=== PATIENT | male | born 1985 | race Hispanic/Latino ===

== ENCOUNTER 2020-06-19 15:23 | Inpatient (IN) | payer MEDICARE, MEDICAID ==
[~2020-06-19 15:23] MED LIST: Iopamidol 370 76% 100 ML VIAL ONE
[2020-06-19] MEDS ORDERED: Morphine 4 MG/ML VIAL ONE ×2 (16:17→22:40)
[2020-06-19] MEDS ORDERED: Ondansetron PF 4 MG/2 ML Vial ONE (16:17)
--- NOTE | 2020-06-19 16:52 | CT ---
CT Abdomen Pelvis W Con History: Abdominal pain. Comparison: Abdomen pelvis CT prior day Findings: Slightly enlarging right layering pleural effusion. Mild pulmonary edema. Heart size is enl arged. Hepatic hypodensities are similar. Slightly enlarging ascites. Intramural calcifications within the urinary bladder. The aortic contour is nonaneurysmal. No dilated loops of large or small bowel. No free intraperitoneal gas. Bilateral nephrectomies. Impression: Enlarging right pleural effusion and abdominal ascites.
[2020-06-19 17:01] LABS: #Eosinphils 0.1 thou/uL (0.0-0.7); #Lymphocytes 0.6 thou/uL (1.20-3.40); #Monocytes 0.4 thou/uL (0.11-0.59); #Neutrophils 2.7 thou/uL (1.40-6.50); %Basophils 0.9 % (0.0-1.0); %Eosinophils 2.6 % (0.0-10.0); %Monocytes 9.7 % (0.0-10.0); %Neutrophils 70.9 % (42.0-75.0); Hemoglobin 11.5 g/dL (14.0-18.0); Mean Corpuscular HGB CONC 32.5 g/dL (32.0-36.0); Mean Corpuscular Hemoglobin 31.4 pg (27.0-31.0); Mean Corpuscular Volume 96.6 fL (78.0-98.0); Mean Platelet Volume 8.2 fL (7.4-10.4); Platelet Count 151 thou/uL (130-400); RBC Distribution Width 16.6 % (11.5-14.5); Red Blood Cell (RBC) Count 3.66 mill/uL (4.70-6.10); White Blood Cell (WBC) Count 3.8 thou/uL (4.8-10.8)
[2020-06-19 17:24] LABS: ALT (SGPT) 9 U/L (8-55); AST (SGOT) 14 U/L (5-34); Albumin 3.9 g/dL (3.5-5.0); Alkaline Phosphatase 35 U/L (40-110); Anion Gap 25 mmol/L (10-20); BUN (Urea Nitrogen) 100 mg/dL (8.9-20.6); Bilirubin, Total 0.6 mg/dL (0.2-1.2); Calc. Creatinine Clearance 0 mL/min (70-130); Calcium 8.9 mg/dL (7.8-10.44); Carbon Dioxide 22 mmol/L (22-29); Chloride 101 mmol/L (98-107); Globulin 2.5 g/dL (2.4-3.5); Glucose 98 mg/dL (70-105); Lipase 52 U/L (8-78); Potassium 5.7 mmol/L (3.5-5.1); Protein, Total 6.4 g/dL (6.0-8.3); Sodium 142 mmol/L (136-145)
[2020-06-19 17:43] LABS: CKMB 2.9 ng/mL (0-6.6)
[2020-06-19] MEDS ORDERED: Morphine 2 MG/ML VIAL ONE (18:00)
--- NOTE | 2020-06-19 19:32 | PDOC.FPRHP ---
- History of Present Illness Chief Complaint: ESRD, Abdominal Pain History of Present Illness: Pt is a 34 yo male with PMH significant for polycystic kidney disease s/p bilateral nephrectomy currently on HD, HTN who presents to the ED for worsening abdominal pain starting 3 days ago. He states he has felt pain like this after his bilateral nephrectomy. He has had 3 paracentesis w/o evidence of SBP. His abdominal pain seems to be fairly consistent and is apparent at rest. Denies significant flank pain. He endorsed chronic diarrhea, dark in nature but denies overt blood. He denies fever, chills, N/V. Has decreased PO intake. Endorsed dyspnea but alleviated with paracentesis. He missed his Friday dialysis. He had his bilateral nephrectomy performed in [place], [place] roughly 6 months ago. After the procedure he notes the ascites became prominent. He moved to [facility] to be with his daughter. He now sees Dr. Winston and has HD on MWF. PCKD runs in the family. Dialysis Fistula is located on L arm. ED Course: Pt was given Morphine for a total of 14 mg IV, zofran. Diagnostic paracentesis was performed. - Allergies/Adverse Reactions Allergies Allergy/AdvReac Type Severity Reaction Status Date / Time ketamine Allergy Verified 06/20/20 14:05 trazodone Allergy Verified 06/20/20 14:05 - Home Medications Medication Instructions Recorded Confirmed Type Diazepam 10 mg PO TID PRN 06/19/20 06/19/20 History Metoprolol Tartrate 50 mg PO BID 06/19/20 06/19/20 History Minoxidil 2.5 mg PO BID 06/19/20 06/19/20 History hydrALAZINE HCl [Hydralazine HCl] 50 mg PO TID 06/19/20 06/19/20 History - History PMHx: PCKD s/p bilateral nephrectomy on HD, HTN PSHx: Bilateral nephrectomy FHx: PCKD Social: Denies tobacco, alcohol, drugs currently; endorsed 1 ppd from [id number] - Review of Systems General: reports: weight/appetite/sleep changes. denies: fever/chills Eyes: denies: eye pain, vision changes ENT: denies: nasal congestion, rhinorrhea Respiratory: reports: shortness of breath. denies: cough, congestion Cardiovascular: reports: edema. denies: chest pain, palpitation Gastrointestinal: reports: diarrhea, abdominal pain. denies: nausea, vomiting, constipation, GI bleeding Skin: denies: rashes, lesions Musculoskeletal: denies: pain, tenderness Neurological: denies: numbness, syncope Psychological: denies: anxiety, depression - Vital signs BP: 180/108 HR: 68 RR: 18 Tmax: 99.1 Pox: 96% on RA Wt:81 kg - Physical Exam Constitutional: NAD, awake, alert and oriented HEENT: normocephalic and atraumatic, PERRLA, EOMI Neck: FROM, no JVD Heart: RRR, normal S1/S2, no murmurs/rubs/gallops, pulses present -Heart: trace LE edema Lungs: CTAB, no respiratory distress, no rales/rhonchi -Abdomen: mild abdominal distention w/o rigidity, pain with minimal palpation, BS present Musculoskeletal: normal structure, ROM grossly normal Neurological: no focal deficit, CN II-XII intact Skin: no rash/lesions, good turgor Heme/Lymphatic: no purpura, no petechia Psychiatric: normal mood and affect, good judgment and insight FMR H&P: Results - Labs Result Diagrams: 06/20/20 01:49 06/20/20 01:49 Lab results: WBC 3.8 thou/uL (4.8-10.8) L 06/19/20 16:27 Hgb 11.5 g/dL (14.0-18.0) L 06/19/20 16:27 Hct 35.4 % (42.0-52.0) L 06/19/20 16:27 MCV 96.6 fL (78.0-98.0) 06/19/20 16:27 Plt Count 151 thou/uL (130-400) 06/19/20 16:27 Neutrophils % 70.9 % (42.0-75.0) 06/19/20 16:27 Sodium 142 mmol/L (136-145) 06/19/20 16:27 Potassium 5.7 mmol/L (3.5-5.1) H 06/19/20 16:27 Chloride 101 mmol/L (98-107) 06/19/20 16:27 Carbon Dioxide 22 mmol/L (22-29) 06/19/20 16:27 BUN 100 mg/dL (8.9-20.6) H 06/19/20 16:27 Creatinine 19.52 mg/dL (0.7-1.3) H 06/19/20 16:27 Glucose 98 mg/dL (70-105) 06/19/20 16:27 Calcium 8.9 mg/dL (7.8-10.44) 06/19/20 16:27 Total Bilirubin 0.6 mg/dL (0.2-1.2) 06/19/20 16:27 AST 14 U/L (5-34) 06/19/20 16:27 ALT 9 U/L (8-55) 06/19/20 16:27 Alkaline Phosphatase 35 U/L (40-110) L 06/19/20 16:27 CK-MB (CK-2) 2.9 ng/mL (0-6.6) 06/19/20 16:27 Serum Total Protein 6.4 g/dL (6.0-8.3) 06/19/20 16:27 Albumin 3.9 g/dL (3.5-5.0) 06/19/20 16:27 Lipase 52 U/L (8-78) 06/19/20 16:27 - EKG Interpretation EKG: NSR w/o ST changes or peaked T waves - Radiology Interpretation CT scan - abdomen Status: report reviewed by me Additional comment: Enlarging right pleural effusion and abdominal ascites, bilateral nephrectomies FMR H&P: A/P - Plan Pt is a 34 yo male who presents for abdominal pain: # Abdominal Pain Differential: s/p bilateral nephrectomy vs bowel ischemia vs SBP vs gastroenteritis CT Abdomen revealed ascites but did not note colitis. - will discuss case with radiology concerning possible bowel ischemia - administer ceftriaxone 1 gm - morphine prn pain - start tylenol, ibuprofen scheduled - pending ascites studies - HIV, UDS, Hep C pending # Anion Gap Bicarb normal. Lactic acid normal. Likely 2/2 ESRD # Hyperkalemia - dialysis planned 06/20, no peaked twaves on EKG - repeat with am labs # Indeterminate Trop Likely demand in setting of HTN and ESRD - trend # HTN - restart home meds - dialysis tomorrow # ESRD s/p bilateral nephrectomy 2/2 polycystic kidney disease - MWF dialysis - Dr. Winston consulted from ED; dialysis for 06/20 am # Normocytic Anemia - likely chronic disease anemia - trend with am labs # Abdominal Ascites Chronic in nature s/p nephrectomy - pending studies # Anxiety - hold diazepam at this time Fluids: none Diet: HH VTE: SCD's, do not think he has a GI bleed but endorsed FMR H&P: Upper Level - Plan Date/Time: 06/19/201930 I, [], have evaluated this patient and agree with findings/plan as outlined by epidemiology intern resident. Pertinent changes/additions are listed here. Addendum - Attending - Attending Attestation Date/Time: 06/19/20 6070 I personally evaluated the patient and discussed the management with Dr. Mitchell I agree with the History, Examination, Assessment and Plan documented above with any addition or exceptions noted below. 34 yo male with ESRD 2/2 polycystic kidney disease s/p bilateral nephrectomy admitted for missed HD and severe abdominal pain. Admit to tele. Correct electrolytes. HD in AM. Paracentesis done. No evidence of SBP. No peritoneal signs but exam out of porportion. Will discuss possibly of ischemic bowel with radiology. No evidence of elevated lactate so less likely but possible. Other concern would be related to uremia in general vs other GI origin. Will continue with symptoms control. Continue serial exams. VS stable. Trend labs. Imaging as needed. Monitor closely throughout the night. Send for stool studies. Denies N/V. Was able to tolerate PO intake this AM. Consult GI vs Gen surg as needed. [place]
[2020-06-19 19:41] LABS: RBC Count-Automated (BF) 1167 /cu.mm; WBC/Nucleated-Auto (BF) 128 uL
[2020-06-19 19:58] LABS: BF Color Yellow; Body Fluid Source Ascites Body Fluid; Clarity Hazy (Clear); Tube # 1
[2020-06-19 20:10] LABS: BF Segmented Neutrophils 4 %; Cell Count Non Hematic 69 %; Eosinophils 1 %; Lymphocytes 25 %
[2020-06-19 20:24] LABS: Troponin I 0.045 ng/mL (< 0.028)
[2020-06-19 23:10] LABS: Troponin I 0.051 ng/mL (< 0.028)
[2020-06-19] MEDS ORDERED: cefTRIAXone\\ROCEPHIN 1 GM in Sodium Chloride 0.9% 100 ML IVPB SCH (23:59)
[2020-06-20] MEDS ORDERED: Famotidine 20 MG TAB PO SCH (00:45)
[2020-06-20] MEDS ORDERED: Metoprolol Tartrate 50 MG TAB ONE ×2 (01:00→10:51)
[2020-06-20] MEDS ORDERED: cefTRIAXone\\ROCEPHIN 1 GM VIAL ONE (01:00)
[2020-06-20] MEDS ORDERED: Ibuprofen 200 MG TAB ONE (01:00)
[2020-06-20] MEDS ORDERED: hydrALAZINE 25 MG TAB ONE (01:00)
[2020-06-20] MEDS ORDERED: Acetaminophen 500 MG TAB ONE (01:00)
[2020-06-20] MEDS: Acetaminophen 500 MG TAB PO SCH ×4 (01:07→18:45)
[2020-06-20] MEDS: Metoprolol Tartrate 50 MG TAB PO SCH ×3 (01:07→20:24)
[2020-06-20] MEDS: hydrALAZINE 25 MG TAB PO SCH ×4 (01:07→20:23)
[2020-06-20] MEDS: Ibuprofen 600 MG TAB PO SCH ×3 (01:08→11:58)
[2020-06-20] MEDS ORDERED: Famotidine 20 MG TAB ONE (01:35)
[2020-06-20] MEDS: Minoxidil 2.5 MG TAB PO SCH ×3 (01:38→20:48)
[2020-06-20 02:02] LABS: #Basophils 0.1 thou/uL (0.0-0.2); #Eosinphils 0.1 thou/uL (0.0-0.7); #Lymphocytes 0.9 thou/uL (1.20-3.40); #Monocytes 0.3 thou/uL (0.11-0.59); #Neutrophils 2.8 thou/uL (1.40-6.50); %Basophils 1.7 % (0.0-1.0); %Eosinophils 2.1 % (0.0-10.0); %Lymphocytes 21.4 % (21.0-51.0); %Neutrophils 66.8 % (42.0-75.0); Hemoglobin 12.5 g/dL (14.0-18.0); Mean Corpuscular HGB CONC 31.6 g/dL (32.0-36.0); Mean Corpuscular Hemoglobin 30.8 pg (27.0-31.0); Mean Corpuscular Volume 97.5 fL (78.0-98.0); Mean Platelet Volume 8.6 fL (7.4-10.4); Platelet Count 141 thou/uL (130-400); RBC Distribution Width 16.7 % (11.5-14.5); Red Blood Cell (RBC) Count 4.04 mill/uL (4.70-6.10); White Blood Cell (WBC) Count 4.2 thou/uL (4.8-10.8)
[2020-06-20 02:27] LABS: Acetaminophen Less than 6.0 mcg/mL (10.0-30.0); Alcohol Less than 10 mg/dL (Less than 10); Salicylate Less than 8.0 mg/dL (15.0-30.0)
[2020-06-20 02:32] LABS: Anion Gap 26 mmol/L (10-20); BUN (Urea Nitrogen) 99 mg/dL (8.9-20.6); Calc. Creatinine Clearance 0 mL/min (70-130); Calcium 8.6 mg/dL (7.8-10.44); Carbon Dioxide 19 mmol/L (22-29); Chloride 100 mmol/L (98-107); Glucose 98 mg/dL (70-105); Potassium 6.3 mmol/L (3.5-5.1); Sodium 139 mmol/L (136-145); Troponin I 0.047 ng/mL (< 0.028)
[2020-06-20 02:46] LABS: HIV (1/2) Antibody/Antigen Non-Reactive (NonReactive); HIV 1/2 INDEX 0.11 S/CO (<1.00); Hep C IgG Ab Non-Reactive (NonReactive); Hep C Index 0.06 S/CO (0-0.79)
[2020-06-20] MEDS ORDERED: Morphine 4 MG/ML VIAL ONE ×2 (04:35→08:54)
[2020-06-20] MEDS: Morphine 4 MG/ML VIAL SLOW IVP PRN ×3 (04:38→21:47)
--- NOTE | 2020-06-20 05:46 | PDOC.FM ---
- Subjective Subjective: Patient reports persistent abdominal pain mildly improved with morphine. He endorses mild nausea without vomiting. Denies CP/SOB. - Objective MAR Reviewed: Yes Vital Signs & Weight: Vital Signs (12 hours) Pulse 06/20/20 01:07 66 Result Diagrams: 06/20/20 01:49 06/20/20 01:49 Phys Exam - Physical Examination Constitutional: NAD HEENT: moist MMs, sclera anicteric Neck: no nodes, no JVD Respiratory: no wheezing, no rales, no rhonchi, clear to auscultation bilateral Cardiovascular: RRR, no significant murmur, no rub Gastrointestinal: soft, positive bowel sounds Mild distension, TTP diffusely, worse in RLQ and LLQ Musculoskeletal: no edema Neurological: non-focal Psychiatric: normal affect, A&O x 3 Skin: no rash, cap refill <2 seconds Dx/Plan - Plan Plan: Pt is a 34 yo male who presents for abdominal pain: Abdominal Pain Differential: s/p bilateral nephrectomy vs gastroenteritis vs SBP vs bowel ischemia CT Abdomen revealed ascites w/o colitis - morphine prn pain - Tylenol, ibuprofen scheduled - HIV, HCV negative - Ascitic fluid studies: WBC 128, 4% neutrophils, no s/s of infx - Consider continuation of Rocephin given abdominal tenderness on exam Anion Gap Bicarb normal. Lactic acid normal. Likely 2/2 ESRD Hyperkalemia - dialysis planned 06/20, no peaked twaves on EKG - continue to monitor Indeterminate Trop Likely demand in setting of HTN and ESRD HTN - restarted home meds - dialysis tomorrow ESRD s/p bilateral nephrectomy 2/2 polycystic kidney disease - MWF dialysis - Dr. Winston consulted from ED; dialysis for 06/20 am Normocytic Anemia - likely chronic disease anemia - trend with am labs Abdominal Ascites Chronic in nature s/p nephrectomy - studies as above, pending albumin Anxiety - restart diazepam to avoid withdrawal Fluids: none Diet: HH VTE: SCD's Code: full Dispo: Admitted tele, ED hold at this time. eLOS < 48 hrs Addendum - Attending - Attending Attestation Date/Time: 06/20/20 8204 I personally evaluated the patient and discussed the management with Dr. Everett. I agree with the History, Examination, Assessment and Plan documented above with any addition or exceptions noted below. HD today. s/p paracentesis in ER yesterday. Fluid studies do not suggest SBP. suspect abdominal pain 2/[address] Winston stated minoxidil may be contributing to this as well. Pain management for now with IV narcotic. Will attempt to taper off in the next few days.
[2020-06-20] MEDS ORDERED: Ondansetron PF 4 MG/2 ML Vial ONE (08:54)
--- NOTE | 2020-06-20 09:35 | CON ---
DATE OF CONSULTATION: 06/20/2020 HISTORY OF PRESENT ILLNESS: Mr. Abbasi is a 34-year-old white male with ESRD from autosomal dominant polycystic kidney disease, who was admitted for abdominal pain. A diagnostic paracentesis was done when he was found to have significant ascites. We are following up this patient for management of his ESRD. Results of his paracentesis are still pending. REVIEW OF SYSTEMS: Positive for abdominal pain. Positive for nausea. No fever or chills. No productive cough. No gross hematuria. No dysuria. No urinary frequency. No syncopal episode. No diarrhea. Appetite and energy level are decreased. PAST MEDICAL HISTORY: ESRD from autosomal dominant polycystic kidney disease, hypertension, history of anxiety, status post UTI. PAST SURGICAL HISTORY: Status post bilateral nephrectomy, status post AV fistula placement. FAMILY HISTORY: Positive family history of autosomal dominant polycystic kidney disease. ALLERGIES: TRAZODONE? TRAUMA: None. IMMUNIZATIONS: Up to date. HOSPITALIZATIONS: Please see past medical history. HOME MEDICATIONS: 1. Metoprolol tartrate 50 mg p.o. b.i.d. 2. Minoxidil 2.5 mg p.o. b.i.d. 3. Hydralazine 50 mg p.o. t.i.d. 4. Diazepam 10 mg p.o. t.i.d. as needed. SOCIAL HISTORY: Patient , several children. He moved from [place] to [place]. Currently lives with his daughter. Smoked for about 1-2 years, one pack per day. Alcohol, none. No IV drug abuse. No tobacco use. Used to work in the [employer] and [employer]. Education high school. Previously incarcerated. PHYSICAL EXAMINATION: VITAL SIGNS: Blood pressure is 130/70, heart rate 66. GENERAL: Awake, alert, in mild pain, not in respiratory distress. SKIN: Adequate turgor. HEENT: He has a pinkish conjunctivae. Anicteric sclerae. NECK: No neck mass. No carotid bruits. No JVD. CHEST: No deformities. LUNGS: Clear breath sounds. HEART: Normal sinus rhythm. No murmur. No gallops. No rubs. ABDOMEN: Globular, soft, nontender. No masses. EXTREMITIES: No edema. No deformities. He does have ascites on examination. LABORATORY DATA: June 20, 2020; sodium 139, potassium 6.3, chloride 100, carbon dioxide 19, BUN 99, creatinine 9.63, glucose 98, calcium 8.6. Troponin I 0.047. White count 4.2, hemoglobin 12.5. Hepatitis C antibody negative. HIV nonreactive. Plasma alcohol less than 10. PD fluid shows hazy fluid, white count is 128, lymphocytes 25, segmenters is only 4. CAT scan of the abdomen and pelvis shows marked ascites and small pericardial effusion with mild pleural effusion. ASSESSMENT AND PLAN: 1. Abdominal pain, unclear if he has overt peritonitis. White count is borderline at 125. My bias is to consider treating him empirically with IV antibiotics. Consider cefepime 1 g IV daily. 2. End-stage renal disease/hyperkalemia, emergent hemodialysis being done. We will plan to do a 3-hour hemodialysis today since he missed his dialysis yesterday. In addition, we will place him back on a Friday, Friday, Friday regular hemodialysis. Will max out fluid removal due to his ascites and finding of a pericardial effusion and pleural effusion. Due to the general anasarca, my bias is to discontinue minoxidil. 3. Abdominal pain, p.r.n. pain medications. Thank you for the consult. We will continue to follow. Job ID: [id number] [facility]
[2020-06-20] MEDS ORDERED: Fentanyl 100 MCG/2 ML VIAL SLOW IVP PRN (09:42)
[2020-06-20] MEDS: Diazepam 5 MG TAB PO SCH ×2 (14:01→20:24)
[2020-06-20] MEDS: HYDROcodone/Acetaminophen 5/325 mg Tablet PO PRN ×2 (14:01→18:44)
[2020-06-20 14:10] VITALS: BMI 26.6
--- NOTE | 2020-06-20 15:15 | ULT ---
EXAM: US Gallbladder RUQ CLINICAL HISTORY: Abdominal pain. COMPARISON: None. FINDINGS: Pancreas: Suboptimal evaluation the pancreas Liver:Hepatic parenchyma has a normal echotexture. No hepatic masses or intrahepatic biliary dilatati on. Right hepatic lobe: 21.5 cm Gallbladder: No sonographic guidance of cholelithiasis. Gallbladder wall is thickened which may in pa rt be due to adjacent ascites. Gallbladder wall thickness is 0.9 cm. Prieto's sign:Negative Portal Vein: Pulsatile flow Bile ducts: 0.72 cm common bile duct diameter Right kidney: Surgically absent right kidney. IMPRESSION: 1. Ascites 2. Gallbladder wall thickening without evidence of choledocholithiasis. Negative Prieto's sign. 3. Prominent common bile duct. If there is concern for choledocholithiasis, consider MRCP
[2020-06-20 19:36] LABS: SARS-CoV-2 PCR by NAA Not Detected (NotDetected)
[2020-06-20] MEDS: Famotidine 20 MG TAB PO SCH (20:23)
[2020-06-21] MEDS: Acetaminophen 500 MG TAB PO SCH ×4 (01:00→18:27)
[2020-06-21] MEDS: HYDROcodone/Acetaminophen 5/325 mg Tablet PO PRN ×2 (03:18→21:29)
--- NOTE | 2020-06-21 06:05 | PDOC.FM ---
- Subjective Subjective: Patient reports abdominal pain is decreased since yesterday. [place] didn't seem to help pain. Denies constipation, CP, SOB. - Objective MAR Reviewed: Yes Vital Signs & Weight: Vital Signs (12 hours) Temp Pulse Resp BP Pulse Ox 06/21/20 03:18 98.1 F 58 L 15 154/84 H 93 L 06/21/20 00:00 98.2 F 62 18 149/79 H 93 L 06/20/20 19:00 98.1 F 64 18 157/88 H 92 L Weight Weight 82 kg I&O: 06/19/20 06/20/20 06/21/20 06:59 06:59 06:59 Intake Total 840 Balance 840 Result Diagrams: 06/21/20 09:42 06/21/20 09:42 Phys Exam - Physical Examination Constitutional: NAD Sleeping comfortably on exam Respiratory: no wheezing, no rales, no rhonchi, clear to auscultation bilateral Cardiovascular: RRR, no significant murmur, no rub Gastrointestinal: soft, no distention, positive bowel sounds diffuse abdominal tenderness to palpation Dx/Plan - Plan Plan: Pt is a 34 yo male who presents for abdominal pain: Abdominal Pain Differential: s/p bilateral nephrectomy vs gastroenteritis vs SBP vs bowel ischemia CT Abdomen revealed ascites w/o colitis - morphine prn pain - Tylenol, ibuprofen scheduled - HIV, HCV negative - Ascitic fluid studies: WBC 128, 4% neutrophils, no s/s of infx - Given low PMN with no organisms seen on gram stain, will continue with no abx therapy at this time - F/U fluid culture - Will work towards pain control Anion Gap Bicarb normal. Lactic acid normal. Likely 2/2 ESRD Hyperkalemia - dialysis planned 06/20, no peaked twaves on EKG - continue to monitor Indeterminate Trop Likely demand in setting of HTN and ESRD HTN - Stop Minoxidil - Start Nifedipine - Continue home hydralazine ESRD s/p bilateral nephrectomy 2/2 polycystic kidney disease - MWF dialysis - Dr. Winston consulted from ED; dialysis for 06/20 am Normocytic Anemia - likely chronic disease anemia - trend with am labs Abdominal Ascites Chronic in nature s/p nephrectomy - studies as above, pending albumin Anxiety - restart diazepam to avoid withdrawal - PDMPP shows patient is filling Rx every month Fluids: none Diet: HH VTE: SCD's Code: full Dispo: Admitted tele, ED hold at this time. eLOS < 48 hrs Addendum - Attending - Attending Attestation Date/Time: 06/21/20 1040 I personally evaluated the patient and discussed the management with Dr. Everett. I agree with the History, Examination, Assessment and Plan documented above with any addition or exceptions noted below. d/c minoxidil. start procardia.
[2020-06-21] MEDS: Diazepam 5 MG TAB PO SCH ×3 (08:35→21:30)
[2020-06-21] MEDS: hydrALAZINE 25 MG TAB PO SCH ×3 (08:35→21:29)
[2020-06-21] MEDS: Metoprolol Tartrate 50 MG TAB PO SCH ×2 (08:36→21:30)
[2020-06-21] MEDS: Morphine 2 MG/ML VIAL SLOW IVP PRN ×4 (08:40→21:30)
[2020-06-21] MEDS ORDERED: NIFEdipine XL 30 MG TAB PO SCH (09:00)
--- NOTE | 2020-06-21 09:27 | PRG ---
DATE OF SERVICE: 06/21/2020 SUBJECTIVE: Mr. Abbasi is a 34-year-old white male, who was admitted for abdominal pain. He has also ESRD and for that reason, we are following up for his maintenance hemodialysis. He underwent emergent hemodialysis yesterday due to the hyperkalemia. This morning, he is feeling better. His abdominal pain is actually slightly improved. He was also found to have generalized edema. For that reason, we held off the minoxidil temporarily. OBJECTIVE: VITAL SIGNS: Blood pressure 163/96, heart rate 59, respiratory rate 22, temperature 98.3, O2 saturations 90%. GENERAL: The patient is awake, alert, sitting comfortable, not in distress. SKIN: Adequate turgor. HEENT: He has a pinkish conjunctivae. Anicteric sclerae. No neck mass. No carotid bruits. No JVD. CHEST: No deformities. LUNGS: Clear breath sounds. No wheezing. No crackles. HEART: Normal sinus rhythm. No murmur. No gallops or rubs. ABDOMEN: Globular, soft, nontender. No masses. EXTREMITIES: No edema. No deformities. MEDICATIONS: Medications of June 21, 2020, reviewed. LABORATORY DATA: Laboratories of June 20, 2020; white count 4.2, hemoglobin 12.5. On June 20, 2020, BUN 99, creatinine 19.63, potassium 6.3. On June 21, 2020, lab work pending. ASSESSMENT AND PLAN: 1. Hyperkalemia, status post hemodialysis. 2. End-stage renal disease. We will continue current Friday, Friday, and Friday hemodialysis regimen. Fluid removal as tolerated. This is a regular hemodialysis schedule. 3. Hypertension-off minoxidil. The patient is started on another antihypertensive medication on Lopressor 50 mg p.o. b.i.d. and on Procardia 30 mg XL tab. 4. Abdominal pain. A CT fluid was sent for examination. No evidence of infection, so far, Gram stain was said to be negative. In addition, blood culture has been done with this patient and no growth to date has been noted. 5. Agree with current management. Job ID: [id number]
[2020-06-21 09:49] LABS: #Eosinphils 0.1 thou/uL (0.0-0.7); #Lymphocytes 0.7 thou/uL (1.20-3.40); #Monocytes 0.4 thou/uL (0.11-0.59); #Neutrophils 2.3 thou/uL (1.40-6.50); %Eosinophils 2.9 % (0.0-10.0); %Lymphocytes 19.6 % (21.0-51.0); %Neutrophils 66.5 % (42.0-75.0); Hemoglobin 12.6 g/dL (14.0-18.0); Mean Corpuscular HGB CONC 32.7 g/dL (32.0-36.0); Mean Corpuscular Hemoglobin 31.6 pg (27.0-31.0); Mean Corpuscular Volume 96.7 fL (78.0-98.0); Platelet Count 146 thou/uL (130-400); Red Blood Cell (RBC) Count 3.97 mill/uL (4.70-6.10); White Blood Cell (WBC) Count 3.5 thou/uL (4.8-10.8)
[2020-06-21 10:11] LABS: ALT (SGPT) 9 U/L (8-55); AST (SGOT) 13 U/L (5-34); Albumin 3.8 g/dL (3.5-5.0); Alkaline Phosphatase 37 U/L (40-110); Anion Gap 20 mmol/L (10-20); BUN (Urea Nitrogen) 69 mg/dL (8.9-20.6); Bilirubin, Total 0.6 mg/dL (0.2-1.2); Calc. Creatinine Clearance 8 mL/min (70-130); Calcium 8.6 mg/dL (7.8-10.44); Carbon Dioxide 26 mmol/L (22-29); Chloride 97 mmol/L (98-107); Globulin 2.3 g/dL (2.4-3.5); Glucose 128 mg/dL (70-105); Potassium 4.9 mmol/L (3.5-5.1); Protein, Total 6.1 g/dL (6.0-8.3); Sodium 138 mmol/L (136-145)
[2020-06-21] MEDS: Ondansetron ODT 4 MG TAB PO PRN (13:12)
[2020-06-21] MEDS: Sevelamer Carbonate 800 MG TAB PO SCH (17:39)
[2020-06-21] MEDS: Famotidine 20 MG TAB PO SCH (21:30)
[2020-06-22] MEDS: Acetaminophen 500 MG TAB PO SCH ×2 (01:54→06:26)
[2020-06-22] MEDS: Morphine 2 MG/ML VIAL SLOW IVP PRN ×3 (01:55→11:25)
[2020-06-22] MEDS: HYDROcodone/Acetaminophen 5/325 mg Tablet PO PRN ×2 (01:56→06:27)
--- NOTE | 2020-06-22 06:12 | PDOC.FM ---
- Subjective Subjective: Patient with worsening abdominal pain today. He is frustrated and feels like he's "going backwards". He endorses nausea only when he has abdominal cramping. Denies vomiting, difficulty eating, and constipation. Denies SOB, CP. Overnight he required more narcotic pain medication and refused Tylenol. - Objective MAR Reviewed: Yes Vital Signs & Weight: Vital Signs (12 hours) Temp Pulse Resp BP Pulse Ox 06/22/20 03:40 98.4 F 60 19 157/95 H 94 L 06/21/20 21:34 98.5 F 63 14 157/103 H 96 Weight Weight 82 kg I&O: 06/20/20 06/21/20 06/22/20 06:59 06:59 06:59 Intake Total 840 Balance 840 Result Diagrams: 06/21/20 09:42 06/21/20 09:42 Phys Exam - Physical Examination Constitutional: NAD Respiratory: no wheezing, no rales, no rhonchi, clear to auscultation bilateral Cardiovascular: RRR, no significant murmur, no rub Gastrointestinal: soft, positive bowel sounds mild distension-more than yesterday, diffuse tenderness Musculoskeletal: no edema Neurological: non-focal, moves all 4 limbs Deviation from normal: Tearful when discussing worsening pain Dx/Plan - Plan Plan: Pt is a 34 yo male who presents for abdominal pain: Abdominal Pain Differential: s/p bilateral nephrectomy vs gastroenteritis vs SBP vs bowel ischemia CT Abdomen revealed ascites w/o colitis - morphine, norco prn pain - Tylenol scheduled - Talked to patient about taking scheduled Tylenol - HIV, HCV negative - Ascitic fluid studies: WBC 128, 4% neutrophils, no s/s of infx - Given low PMN with no organisms seen on gram stain, will continue with no abx therapy at this time - F/U fluid culture - Will work towards pain control - Add Gabapentin 300 QD and hyoscyamine Q6H Anion Gap Bicarb normal. Lactic acid normal. Likely 2/2 ESRD Hyperkalemia - dialysis planned per normal schedule - continue to monitor Indeterminate Trop Likely demand in setting of HTN and ESRD HTN - Stopped Minoxidil - Started Nifedipine, increase today - Continue home hydralazine ESRD s/p bilateral nephrectomy 2/2 polycystic kidney disease - MWF dialysis - Dr. Winston consulted from ED Normocytic Anemia - likely chronic disease anemia - trend with am labs Abdominal Ascites Chronic in nature s/p nephrectomy - studies as above Anxiety - restart diazepam to avoid withdrawal - PDMPP shows patient is filling Rx every month Fluids: none Diet: HH VTE: SCD's Code: full Dispo: Admitted tele inpatient eLOS < 48 hrs, pending workup and pain control. Addendum - Attending - Attending Attestation Date/Time: 06/22/20 7597 I personally evaluated the patient and discussed the management with Dr. Everett. I agree with the History, Examination, Assessment and Plan documented above with any addition or exceptions noted below. [employer] shows he is on norco 5mg BID chronically. will resume this. cymbalta for nerve pain renally dosed. possible d/c today if cleared per nephro.
[2020-06-22] MEDS ORDERED: Polyethylene Glycol 3350 17 GM Packet PO PRN (08:20)
[2020-06-22] MEDS ORDERED: Hyoscyamine Sulfate SL 0.125 mg Tablet PO SCH ×2 (08:45→12:00)
--- NOTE | 2020-06-22 08:54 | PRG ---
DATE OF SERVICE: 06/22/2020 SUBJECTIVE: Mr. Abbasi is a 34-year-old white male with ESRD who was admitted for abdominal pain. Workup for the abdominal pain has been negative. CT scan of the abdomen and pelvis has been done. In addition, PD fluid as well as blood culture have all been negative. Still complaining of some mild abdominal pain. On close questioning, the patient tells me this is chronic in nature. He is asking for further adjustment of his pain medications upwards. I did explain to him that we have to use narcotics judiciously. I did speak with the house staff regarding pain management. Gabapentin to be given at 300 mg tablet daily. In addition, minoxidil has been discontinued due to the anasarca with this patient. No complaints of chest pain or shortness of breath. OBJECTIVE: VITAL SIGNS: Blood pressure 172/102, heart rate 58, respiratory rate 17, temperature 98, O2 saturation 94% on room air. GENERAL: The patient is awake, alert, comfortable, not in distress. SKIN: Adequate turgor. HEENT: He has pinkish conjunctivae. Anicteric sclerae. No neck mass. No carotid bruits. No JVD. CHEST: No deformities. LUNGS: Clear breath sounds. No wheezing. No crackles. HEART: Normal sinus rhythm. No murmur. No gallops. No rubs. ABDOMEN: Globular, soft, nontender. No masses. EXTREMITIES: No edema, no deformities. MEDICATIONS: From June 22, 2020, reviewed. LABORATORY DATA: From June 21, 2020; white count 3.5, hemoglobin 12.6. Sodium 138, potassium 4.9, chloride 97, carbon dioxide 26, BUN 69, creatinine 15.6, glucose 128. AST 13, ALT 9, albumin 3.8. ASSESSMENT AND PLAN: 1. Abdominal pain - chronic in nature. Imaging showed no acute intraabdominal abnormality. In addition, the patient's ascitic fluid showed no bacteria growing. Blood culture was also negative. 2. Hypertension. Minoxidil discontinued and replaced with nifedipine. Nifedipine has been increased to 60 mg XL tablet once a day. Agree with current management. Continue supportive care. 3. End-stage renal disease, stable. Tolerated dialysis yesterday. Next dialysis will be tomorrow. We will continue current Friday, Friday, and Friday dialysis regimen. Job ID: [id number]
[2020-06-22] MEDS ORDERED: NIFEdipine XL 30 MG TAB PO SCH (09:00)
[2020-06-22] MEDS ORDERED: Gabapentin 100 MG CAP PO SCH (09:00)
[2020-06-22] MEDS: hydrALAZINE 25 MG TAB PO SCH (09:06)
[2020-06-22] MEDS: Diazepam 5 MG TAB PO SCH (09:06)
[2020-06-22] MEDS: Metoprolol Tartrate 50 MG TAB PO SCH (09:06)
[2020-06-22] MEDS: Sevelamer Carbonate 800 MG TAB PO SCH ×2 (09:08→11:33)
[2020-06-22] MEDS: Ondansetron ODT 4 MG TAB PO PRN (11:25)
[2020-06-22 12:06] VITALS: BP 178/96; TEMP 97.6
[2020-06-22] MEDS ORDERED: HYDROcodone/Acetaminophen 5/325 mg Tablet PO SCH (21:00)
--- NOTE | 2020-06-23 14:23 | DIS ---
DATE OF ADMISSION: 06/20/2020 DATE OF DISCHARGE: 06/22/2020 RESIDENT: Mitul Everett MD ADMITTING ATTENDING: Dr. Wiley. DISCHARGE ATTENDING: Dr. Lozoya. CONSULT: Dr. Winston, Nephrology on 06/19/2020. PROCEDURES: The patient had CT of the abdomen and pelvis with contrast, showing a slightly enlarging right pleural effusion with mild pulmonary edema, no free intraperitoneal gas, bilateral nephrectomies and abdominal ascites. The patient had right upper quadrant ultrasound showing mild ascites, gallbladder wall thickening without evidence of choledocholithiasis, and a prominent common bile duct. The patient had a paracentesis performed in the emergency room, diagnostic. PRIMARY DIAGNOSIS: Hyperkalemia. SECONDARY DIAGNOSES: 1. indeterminate troponin. 2. Hypertension. 3. End-stage renal disease, status post bilateral nephrectomy due to polycystic kidney disease, on hemodialysis. 4. Normocytic anemia. 5. Abdominal ascites. 6. Anxiety. DISCHARGE MEDICATIONS: 1. Tylenol 1000 mg p.o. q.6 hours. 2. Diazepam 10 mg p.o. t.i.d. 3. Cymbalta 20 mg p.o. daily. 4. Pepcid 20 mg p.o. q.p.m. 5. Hydralazine 50 mg p.o. t.i.d. 6. Jaroso 5 mg/325 mg p.o. b.i.d. 7. Hyoscyamine 0.125 mg p.o. q.6 hours, 30 days. 8. Metoprolol 50 mg p.o. b.i.d. 9. Nifedipine 60 mg p.o. daily. 10. MiraLAX 17 g p.o. daily p.r.n. 11. Renvela 2400 mg p.o. t.i.d. DISCONTINUED MEDICATIONS: Discontinue minoxidil due to ascites and anasarca. HISTORY OF PRESENT ILLNESS/HOSPITAL COURSE: The patient is a 34-year-old male, who presented to the ER after missing two days of dialysis with abdominal pain. He described the pain as diffuse and burning/ripping in character. Paracentesis performed in the ED with no evidence of spontaneous bacterial peritonitis. White blood cell count in fluid was 128 with 4% neutrophils, SAAG gradient was consistent with portal hypertension. Potassium on admission was 5.7, which up trended to 6.3 before dialysis was performed per Dr. Winston. The patient's abdominal pain was persistent throughout hospital stay. The patient was restarted on home diazepam. On day 1 of hospitalization, Jaroso and morphine were used to control pain. On day 2 of hospitalization, the pain was not controlled with Jaroso. The patient's labs were unremarkable for infection, and at time of dictation summary on 06/23/2020, ascites fluid culture has no growth in 3 days with no organisms seen. The patient was not treated for spontaneous bacterial peritonitis, given lack of evidence for treatment. DISPOSITION: Stable. DISCHARGE INSTRUCTIONS: 1. Location: Home. 2. Diet: Renal diet, high-protein. 3. Activity: As tolerated. 4. Followup: The patient to follow up with PCP within [address] Winston as scheduled for hemodialysis. He will need re-evaluation with blood pressure medicines, given switch in hospital and progression or resolution of abdominal pain. Job ID: [id number] MTDD
--- NOTE | 2020-06-23 20:44 | PQF ---
Dear : Ángel Lozoya Date 06/23/2020 Please exercise your independent, professional judgment in responding to the clarification form. Clinical indicators are provided on the bottom of this form for your review Can you please further clarify the etiology of patient abdominal pain? [ ] Portal Hypertension [ ] Acute bowel ischemia [x ] Fluid overload [ x ] Abdominal pain of unknown etiology [ ] Other diagnosis please specify [ ] Unable to determine Physician Signature: Date/Time: For continuity of documentation, please document condition throughout progress notes and discharge summary. Thank You. To be completed by CDI/Coding staff for physician review: Present Clinical Indicators - Signs / Symptoms / Labs Results and Location in Medical Record [ x ] Abdominal pain differential: s/p bilateral nephrectomy vs bowel ischemia vs sbp vs gastroenteritis H and P pg.4 [ x ] Radiology concerning possible bowel ischemia H and P pg.4 [ x ] Endorses chronic diarrhea, dark in nature H and P pg.1 [ x ] Suspect abdominal pain 2/2 fluid overload Family PN MEDpg.3 [ x ] Abdominal pain, unclear he has overt peritonitis Consult pg.2 [ x ] CT abdomen revealed ascites w/o colitis Family PN pg.1 [ x ] Abdominal pain, chronic in nature PN 06/22 pg.1 [ x ] SAAG gradient was consistent with portal hypertension DS pg.2 Present Risk Factors Results and Location in Medical Record [ x ] ESRD H and P pg.4 [ x ] s/p bilateral nephrectomy Consult pg.1 [ x ] smoker Consult pg.1 Present Treatments Results and Location in Medical Record [ x ] Morphine IV 4mg MAR [ x ] IV fluids MAR [ x ] Abdomen/Pelvis CT Abdomen/Pelvis CT 06/19 [employer] Signature: Mingo Mckay Phone #: ext [phone] Date:06/23/2020 This is a permanent part of the Medical Record [facility]
== END 2020-06-22 13:40 | disposition home or self-care (01) | DRG 640 ==
LOC: ERS 15:23 → ERHOLD 19:24 → 3SE 06-20 13:51 → OBSVTOIN 06-20 17:23
PROVIDERS: ADMIT Student in an Organized Health Care Education/Training Program; ATTEND Student in an Organized Health Care Education/Training Program
PROC: 5A1D70Z Performance of Urinary Filtration, Intermittent, Less than 6 Hours Per Day (ICD-10-PCS; principal; 2020-06-20)
DX: E87.70 Fluid overload, unspecified (principal); N18.6 End stage renal disease; K76.6 Portal hypertension; I12.0 Hypertensive chronic kidney disease with stage 5 chronic kidney disease or end stage renal disease; R18.8 Other ascites; R10.9 Unspecified abdominal pain; E87.5 Hyperkalemia; Z20.822 Contact with and (suspected) exposure to COVID-19; F41.9 Anxiety disorder, unspecified; D63.1 Anemia in chronic kidney disease; F17.210 Nicotine dependence, cigarettes, uncomplicated; G89.29 Other chronic pain; Z99.2 Dependence on renal dialysis; Z88.8 Allergy status to other drugs, medicaments and biological substances; Z79.899 Other long term (current) drug therapy; K52.9 Noninfective gastroenteritis and colitis, unspecified
CPT/HCPCS: 36415; 49083; 74177; 76705; 80048; 80053; 80307; 82042; 82553; 82945; 83605; 83615; 83690; 83735; 84157; 84484; 85025; 85060; 86803; 87040; 87070; 87205; 87389; 87635; 89051; 90935; 93005; 96374; 96375; 96376; G0257; G0378; J0696; J1200; J1630; J2270; J2405; J3490; Q0162; Q9967; U0003; U0005